=== PATIENT | male | born 1990 | race Caucasian/White ===

== ENCOUNTER 2016-10-22 21:45 | Emergency (ER) | payer SELFPAY ==
[~2016-10-22] VITALS: Ht 180.3 cm; Wt 65.0 kg
[~2016-10-22 21:45] MED LIST: Z.0.NO CURRENT MEDS
[2016-10-22 21:52] VITALS: BP 119/76; PULSE 96; RESP 16; TEMP 97.6; O2SAT 100
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
== END 2016-10-23 00:16 | disposition home or self-care (01) ==
LOC: PHEFT 21:45
DX: S00.83XA Contusion of other part of head, initial encounter (principal); F10.129 Alcohol abuse with intoxication, unspecified; F17.200 Nicotine dependence, unspecified, uncomplicated; V48.9XXA Unspecified car occupant injured in noncollision transport accident in traffic accident, initial encounter; Y92.828 Other wilderness area as the place of occurrence of the external cause
CPT/HCPCS: 70450; 72100; 72125

== ENCOUNTER 2017-05-06 20:46 | Emergency (ER) | payer OTHER ==
[2017-05-06 20:58] VITALS: BP 111/64; PULSE 77; RESP 20; TEMP 98; O2SAT 96
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
[2017-05-07 05:46] VITALS: BP 106/53; PULSE 82; RESP 18; O2SAT 96
== END 2017-05-07 07:00 | disposition home or self-care (01) ==
LOC: NEPD 20:46
DX: F10.129 Alcohol abuse with intoxication, unspecified (principal); F17.200 Nicotine dependence, unspecified, uncomplicated
CPT/HCPCS: 99281